=== PATIENT | male | born 1950 | race African-American/Black ===

== ENCOUNTER 2021-02-24 22:05 | Inpatient (IN) | payer MEDICARE, OTHER ==
[~2021-02-24] VITALS: Ht 188 cm; Wt 89.4 kg
[2021-02-24 22:05] VITALS: BP 139/73
[~2021-02-24 22:05] MED LIST: BENA20TA77; isosorbide
[2021-02-24 23:00] VITALS: BP 139/78
[2021-02-24] MEDS ORDERED: IPRATROPIUM/ALBUTEROL 0.5-3(2.5)MG/3ML NEB HHN PRN (23:00)
[2021-02-24] MEDS ORDERED: BISACODYL 5MG TABLET PO PRN (23:00)
[2021-02-25] MEDS: IPRATROPIUM/ALBUTEROL 0.5-3(2.5)MG/3ML NEB HHN SCH ×4 (02:01→20:43)
[2021-02-25 07:51] VITALS: BP 118/68
[2021-02-25] MEDS ORDERED: PNEUMOCOCCAL 23-VAL P-SAC VAC 0.5 ML IM ONE (08:00)
[2021-02-25] MEDS: DOCUSATE SODIUM SUGAR FREE 100MG/10ML UDC PO SCH ×2 (09:00→09:24)
[2021-02-25] MEDS ORDERED: AZITHROMYCIN 250 MG TABLET PO SCH (09:00)
[2021-02-25] MEDS: FINASTERIDE 5MG TABLET PO SCH (09:23)
[2021-02-25] MEDS: BICALUTAMIDE 50 MG TABLET PO SCH (09:24)
[2021-02-25] MEDS ORDERED: INFLUENZA VACCINE 05/PF 0.5 ML VIAL IM ONE (10:00)
[2021-02-25] MEDS: LEVOFLOXACIN 250MG TABLET PO SCH (11:08)
[2021-02-25] MEDS ORDERED: ATOR-2 PO (12:02)
[2021-02-25] MEDS ORDERED: HYDR-4001 PO (12:06)
[2021-02-25] MEDS ORDERED: TERA2CAP4 MT (12:06)
[2021-02-25] MEDS ORDERED: DORZOLAMIDE TIMOLOL (12:06)
[2021-02-25] MEDS ORDERED: FINA5TAB11 PO (12:06)
[2021-02-25] MEDS ORDERED: BICA50TA7 PO (12:06)
[2021-02-25] MEDS ORDERED: LACTULOSE 20G/30ML UDC PO PRN (14:45)
[2021-02-25 20:00] VITALS: BP 133/77
[2021-02-25] MEDS: TERAZOSIN HCL 1MG CAPSULE PO SCH (20:59)
[2021-02-25 21:15] LABS: VITAMIN B12 SERUM 783 pg/mL (211-911)
[2021-02-26] MEDS: IPRATROPIUM/ALBUTEROL 0.5-3(2.5)MG/3ML NEB HHN SCH ×3 (02:31→14:14)
[2021-02-26 08:02] VITALS: BP 125/72
[2021-02-26] MEDS: DOCUSATE SODIUM SUGAR FREE 100MG/10ML UDC PO SCH (09:14)
[2021-02-26] MEDS: BICALUTAMIDE 50 MG TABLET PO SCH (09:14)
[2021-02-26] MEDS: FINASTERIDE 5MG TABLET PO SCH (09:14)
[2021-02-26 20:00] VITALS: BP 133/74
[2021-02-26] MEDS: TERAZOSIN HCL 1MG CAPSULE PO SCH (20:30)
[2021-02-27] VITALS (12 sets, daily range): BP systolic 120–145; BP diastolic 72–82
[2021-02-27] MEDS: IPRATROPIUM/ALBUTEROL 0.5-3(2.5)MG/3ML NEB HHN SCH ×4 (02:16→21:01)
[2021-02-27 06:54] LABS: BASOPHILS % 0.4 % (0.0-2.0); EOSINOPHILS % 3.9 % (0.0-5.0); LYMPHOCYTES % 32.2 % (20.0-50.0); MEAN CORPUSCULAR HEMOGLOBIN 32.2 pg (28.0-32.0); MEAN CORPUSCULAR VOLUME 98.9 fL (80.0-94.0); MEAN PLATELET VOLUME 7.9 fl (7.4-10.4); MONOCYTES % 12.6 % (2.0-8.0); NEUTROPHILS % 50.9 % (40.0-76.0); PLATELET 118 x1000/uL (130-400); RED BLOOD CELL COUNT 2.05 mill/uL (4.7-6.1); RED CELL DISTRIBUTION WIDTH 21.2 % (11.6-14.6)
[2021-02-27 06:59] LABS: HEMATOCRIT. 20.3 % (42.0-52.0); HEMOGLOBIN. 6.6 g/dL (14.0-18.0)
[2021-02-27] MEDS: DOCUSATE SODIUM SUGAR FREE 100MG/10ML UDC PO SCH (08:15)
[2021-02-27] MEDS: FINASTERIDE 5MG TABLET PO SCH (08:15)
[2021-02-27] MEDS: BICALUTAMIDE 50 MG TABLET PO SCH (08:15)
[2021-02-27] MEDS: LEVOFLOXACIN 250MG TABLET PO SCH (11:43)
[2021-02-27] MEDS: TERAZOSIN HCL 1MG CAPSULE PO SCH (20:12)
[2021-02-27 22:08] LABS: HEMATOCRIT 25.8 % (42.0-52.0); HEMOGLOBIN 8.6 g/dL (14.0-18.0)
[2021-02-28] MEDS: IPRATROPIUM/ALBUTEROL 0.5-3(2.5)MG/3ML NEB HHN SCH ×4 (01:12→21:41)
[2021-02-28 02:41] LABS: INR 1.1
[2021-02-28 06:59] LABS: BASOPHILS % 0.4 % (0.0-2.0); EOSINOPHILS % 3.7 % (0.0-5.0); HEMATOCRIT. 23.9 % (42.0-52.0); HEMOGLOBIN. 8.1 g/dL (14.0-18.0); LYMPHOCYTES % 34.2 % (20.0-50.0); MEAN CORPUSCULAR VOLUME 97.6 fL (80.0-94.0); MEAN PLATELET VOLUME 7.9 fl (7.4-10.4); MONOCYTES % 12.9 % (2.0-8.0); NEUTROPHILS % 48.8 % (40.0-76.0); PLATELET 114 x1000/uL (130-400); RED BLOOD CELL COUNT 2.45 mill/uL (4.7-6.1); RED CELL DISTRIBUTION WIDTH 20.3 % (11.6-14.6)
[2021-02-28 08:00] VITALS: BP 127/71
[2021-02-28] MEDS: DOCUSATE SODIUM SUGAR FREE 100MG/10ML UDC PO SCH ×2 (09:00→09:03)
[2021-02-28] MEDS: BICALUTAMIDE 50 MG TABLET PO SCH (09:02)
[2021-02-28] MEDS: FINASTERIDE 5MG TABLET PO SCH (09:02)
[2021-02-28 20:00] VITALS: BP 138/81
[2021-02-28] MEDS: TERAZOSIN HCL 1MG CAPSULE PO SCH (21:58)
[2021-03-01] MEDS: IPRATROPIUM/ALBUTEROL 0.5-3(2.5)MG/3ML NEB HHN SCH ×4 (01:54→21:04)
[2021-03-01] MEDS: ACETAMINOPHEN 325MG TABLET PO PRN ×2 (06:34→13:20)
[2021-03-01 07:47] VITALS: BP 152/83
[2021-03-01] MEDS: FINASTERIDE 5MG TABLET PO SCH (08:26)
[2021-03-01] MEDS: BICALUTAMIDE 50 MG TABLET PO SCH (08:27)
[2021-03-01] MEDS: DOCUSATE SODIUM SUGAR FREE 100MG/10ML UDC PO SCH (08:28)
[2021-03-01] MEDS: LEVOFLOXACIN 250MG TABLET PO SCH (11:00)
[2021-03-01] MEDS: TERAZOSIN HCL 1MG CAPSULE PO SCH (21:31)
[2021-03-02] MEDS: IPRATROPIUM/ALBUTEROL 0.5-3(2.5)MG/3ML NEB HHN SCH ×4 (02:56→22:10)
[2021-03-02] MEDS: ACETAMINOPHEN 325MG TABLET PO PRN (06:25)
[2021-03-02 08:26] VITALS: BP 134/76
[2021-03-02] MEDS: DOCUSATE SODIUM SUGAR FREE 100MG/10ML UDC PO SCH (09:00)
[2021-03-02] MEDS: FINASTERIDE 5MG TABLET PO SCH (09:45)
[2021-03-02] MEDS: BICALUTAMIDE 50 MG TABLET PO SCH (09:53)
[2021-03-02 14:26] LABS: BASOPHILS % 0.3 % (0.0-2.0); EOSINOPHILS % 3.3 % (0.0-5.0); HEMATOCRIT. 30.9 % (42.0-52.0); HEMOGLOBIN. 10.2 g/dL (14.0-18.0); LYMPHOCYTES % 26.2 % (20.0-50.0); MEAN CORPUSCULAR VOLUME 97.5 fL (80.0-94.0); MEAN PLATELET VOLUME 7.8 fl (7.4-10.4); MONOCYTES % 8.8 % (2.0-8.0); NEUTROPHILS % 61.4 % (40.0-76.0); PLATELET 165 x1000/uL (130-400); RED BLOOD CELL COUNT 3.17 mill/uL (4.7-6.1); RED CELL DISTRIBUTION WIDTH 20.2 % (11.6-14.6)
[2021-03-02 14:35] LABS: CHLORIDE 116 mEq/L (98-107)
[2021-03-02 20:00] VITALS: BP 142/81
[2021-03-02] MEDS: TERAZOSIN HCL 1MG CAPSULE PO SCH (21:29)
[2021-03-03] MEDS: ACETAMINOPHEN 325MG TABLET PO PRN (06:31)
[2021-03-03 08:00] VITALS: BP 125/75
[2021-03-03] MEDS: IPRATROPIUM/ALBUTEROL 0.5-3(2.5)MG/3ML NEB HHN SCH ×2 (08:13→14:00)
[2021-03-03] MEDS: DOCUSATE SODIUM SUGAR FREE 100MG/10ML UDC PO SCH (09:00)
[2021-03-03] MEDS: BICALUTAMIDE 50 MG TABLET PO SCH (09:07)
[2021-03-03] MEDS: FINASTERIDE 5MG TABLET PO SCH (09:07)
[2021-03-03] MEDS: LEVOFLOXACIN 250MG TABLET PO SCH (12:57)
[2021-03-03] MEDS: FUROSEMIDE 40MG/4ML VIAL IVP SCH (12:58)
[2021-03-03 20:00] VITALS: BP 144/85
[2021-03-03] MEDS: TERAZOSIN HCL 1MG CAPSULE PO SCH (21:57)
[2021-03-04] MEDS: IPRATROPIUM/ALBUTEROL 0.5-3(2.5)MG/3ML NEB HHN SCH ×3 (07:30→21:32)
[2021-03-04 08:00] VITALS: BP 136/81
[2021-03-04] MEDS: FUROSEMIDE 40MG/4ML VIAL IVP SCH (08:16)
[2021-03-04] MEDS: BICALUTAMIDE 50 MG TABLET PO SCH (08:16)
[2021-03-04] MEDS: FINASTERIDE 5MG TABLET PO SCH (08:16)
[2021-03-04] MEDS: ACETAMINOPHEN 325MG TABLET PO PRN (08:17)
[2021-03-04] MEDS: DOCUSATE SODIUM SUGAR FREE 100MG/10ML UDC PO SCH (08:17)
[2021-03-04 20:00] VITALS: BP 130/78
[2021-03-04] MEDS: TERAZOSIN HCL 1MG CAPSULE PO SCH (20:27)
[2021-03-05] MEDS: ACETAMINOPHEN 325MG TABLET PO PRN (05:56)
[2021-03-05] MEDS: FUROSEMIDE 40MG/4ML VIAL IVP SCH ×2 (08:17→17:00)
[2021-03-05] MEDS: BICALUTAMIDE 50 MG TABLET PO SCH (08:17)
[2021-03-05] MEDS: DOCUSATE SODIUM SUGAR FREE 100MG/10ML UDC PO SCH (08:17)
[2021-03-05] MEDS: FINASTERIDE 5MG TABLET PO SCH (08:17)
[2021-03-05 08:24] VITALS: BP 148/89
[2021-03-05] MEDS: POTASSIUM CHLORIDE 20MEQ TABLET SR PO SCH (10:52)
[2021-03-05 12:13] LABS: BASOPHILS % 0.4 % (0.0-2.0); EOSINOPHILS % 2.9 % (0.0-5.0); HEMATOCRIT. 29.3 % (42.0-52.0); HEMOGLOBIN. 9.9 g/dL (14.0-18.0); LYMPHOCYTES % 25.7 % (20.0-50.0); MEAN CORPUSCULAR HEMOGLOBIN 33.2 pg (28.0-32.0); MEAN CORPUSCULAR VOLUME 98.6 fL (80.0-94.0); MEAN PLATELET VOLUME 7.4 fl (7.4-10.4); MONOCYTES % 9.5 % (2.0-8.0); NEUTROPHILS % 61.5 % (40.0-76.0); PLATELET 142 x1000/uL (130-400); RED BLOOD CELL COUNT 2.97 mill/uL (4.7-6.1); RED CELL DISTRIBUTION WIDTH 20.2 % (11.6-14.6)
[2021-03-05 20:00] VITALS: BP 118/85
[2021-03-05] MEDS: TERAZOSIN HCL 1MG CAPSULE PO SCH (20:41)
[2021-03-05] MEDS: IPRATROPIUM/ALBUTEROL 0.5-3(2.5)MG/3ML NEB HHN SCH (21:42)
[2021-03-06] MEDS: ACETAMINOPHEN 325MG TABLET PO PRN ×2 (04:04→17:12)
[2021-03-06] MEDS: FUROSEMIDE 40MG/4ML VIAL IVP SCH ×2 (06:15→17:09)
[2021-03-06 08:00] VITALS: BP 152/86
[2021-03-06] MEDS: IPRATROPIUM/ALBUTEROL 0.5-3(2.5)MG/3ML NEB HHN SCH ×2 (09:00→20:21)
[2021-03-06] MEDS: DOCUSATE SODIUM SUGAR FREE 100MG/10ML UDC PO SCH (09:00)
[2021-03-06] MEDS: FINASTERIDE 5MG TABLET PO SCH (09:29)
[2021-03-06] MEDS: BICALUTAMIDE 50 MG TABLET PO SCH (09:29)
[2021-03-06] MEDS: POTASSIUM CHLORIDE 20MEQ TABLET SR PO SCH (09:29)
[2021-03-06 20:00] VITALS: BP 142/83
[2021-03-06] MEDS: TERAZOSIN HCL 1MG CAPSULE PO SCH (20:39)
[2021-03-07] MEDS: FUROSEMIDE 40MG/4ML VIAL IVP SCH ×2 (06:18→16:43)
[2021-03-07] MEDS: IPRATROPIUM/ALBUTEROL 0.5-3(2.5)MG/3ML NEB HHN SCH ×2 (07:39→21:44)
[2021-03-07 08:00] VITALS: BP 132/79
[2021-03-07] MEDS: DOCUSATE SODIUM SUGAR FREE 100MG/10ML UDC PO SCH (09:00)
[2021-03-07] MEDS: FINASTERIDE 5MG TABLET PO SCH (09:21)
[2021-03-07] MEDS: POTASSIUM CHLORIDE 20MEQ TABLET SR PO SCH (09:21)
[2021-03-07] MEDS: BICALUTAMIDE 50 MG TABLET PO SCH (09:23)
[2021-03-07 20:00] VITALS: BP 144/86
[2021-03-07] MEDS: TERAZOSIN HCL 1MG CAPSULE PO SCH (20:57)
[2021-03-08] MEDS: ACETAMINOPHEN 325MG TABLET PO PRN (06:17)
[2021-03-08] MEDS: FUROSEMIDE 40MG/4ML VIAL IVP SCH ×2 (06:17→17:32)
[2021-03-08] MEDS: IPRATROPIUM/ALBUTEROL 0.5-3(2.5)MG/3ML NEB HHN SCH ×2 (07:53→21:32)
[2021-03-08 08:00] VITALS: BP 138/90
[2021-03-08] MEDS: BICALUTAMIDE 50 MG TABLET PO SCH ×2 (09:00→09:11)
[2021-03-08] MEDS: FINASTERIDE 5MG TABLET PO SCH (09:11)
[2021-03-08] MEDS: POTASSIUM CHLORIDE 20MEQ TABLET SR PO SCH (09:11)
[2021-03-08] MEDS: DOCUSATE SODIUM SUGAR FREE 100MG/10ML UDC PO SCH (09:14)
[2021-03-08 20:00] VITALS: BP 130/84
[2021-03-08] MEDS: TERAZOSIN HCL 1MG CAPSULE PO SCH (20:36)
[2021-03-09] MEDS: FUROSEMIDE 40MG/4ML VIAL IVP SCH ×2 (06:40→16:36)
[2021-03-09] MEDS: IPRATROPIUM/ALBUTEROL 0.5-3(2.5)MG/3ML NEB HHN SCH ×2 (07:24→16:20)
[2021-03-09 08:00] VITALS: BP 147/89
[2021-03-09] MEDS: FINASTERIDE 5MG TABLET PO SCH (09:00)
[2021-03-09] MEDS: POTASSIUM CHLORIDE 20MEQ TABLET SR PO SCH (09:00)
[2021-03-09] MEDS: DOCUSATE SODIUM SUGAR FREE 100MG/10ML UDC PO SCH (09:50)
[2021-03-09] MEDS: ACETAMINOPHEN 325MG TABLET PO PRN (09:53)
== END 2021-03-09 16:50 | disposition home health service (06) | DRG 947 ==
PROVIDERS: ADMIT Psychiatry & Neurology Neurology; ATTEND Internal Medicine
DX: R53.81 Other malaise (principal); A41.9 Sepsis, unspecified organism; J96.00 Acute respiratory failure, unspecified whether with hypoxia or hypercapnia; J18.9 Pneumonia, unspecified organism; I50.31 Acute diastolic (congestive) heart failure; N13.6 Pyonephrosis; C79.51 Secondary malignant neoplasm of bone; I69.354 Hemiplegia and hemiparesis following cerebral infarction affecting left non-dominant side; I13.0 Hypertensive heart and chronic kidney disease with heart failure and stage 1 through stage 4 chronic kidney disease, or unspecified chronic kidney disease; N17.9 Acute kidney failure, unspecified; K56.41 Fecal impaction; R62.7 Adult failure to thrive; I12.9 Hypertensive chronic kidney disease with stage 1 through stage 4 chronic kidney disease, or unspecified chronic kidney disease; N18.9 Chronic kidney disease, unspecified; D69.6 Thrombocytopenia, unspecified; D64.9 Anemia, unspecified; I27.21 Secondary pulmonary arterial hypertension; N25.0 Renal osteodystrophy; N28.1 Cyst of kidney, acquired; Z85.46 Personal history of malignant neoplasm of prostate; Z93.6 Other artificial openings of urinary tract status; Z68.25 Body mass index [BMI] 25.0-25.9, adult
CPT/HCPCS: 36415; 71045; 80048; 82270; 82607; 83880; 84145; 84443; 85014; 85018; 85025; 85049; 85384; 86850; 86900; 86920; 93306; 93970; 94618; 94640; 97110; 97112; 97116; 97162; 97166; 97530; 97535; J1940; J7040; P9016; P9021; A5200

== ENCOUNTER 2021-03-24 13:00 | Inpatient (IN) | payer MEDICARE, OTHER ==
[~2021-03-24] VITALS: Ht 172.7 cm; Wt 69.4 kg
[~2021-03-24 13:00] MED LIST changes: +ATOR-2 PO; -BENA20TA77; +BICA50TA7 PO; +DORZOLAMIDE TIMOLOL; +FINA5TAB11 PO; +HYDR-4001 PO; +TERA2CAP4 MT
[2021-03-24] MEDS ORDERED: PIPERACILLIN/TAZ 3.375G PREMIX 50 ML IV ONE (13:30)
[2021-03-24] MEDS ORDERED: ASPIRIN 81MG EC TABLET PO ONE (13:30)
[2021-03-24] MEDS ORDERED: SODIUM CHLORIDE 0.9% 1000ML BAG (SEPSIS BOLUS) IV ONE (13:30)
[2021-03-24] MEDS ORDERED: VANCOMYCIN 1 G PREMIX 200 ML IV ONE (13:30)
[2021-03-24] MEDS ORDERED: DEXAMETHASONE 10 MG/ML VIAL IV ONE (13:45)
[2021-03-24 13:57] LABS: BG BASE EXCESS -5.9 mmol/L (-2.0-2.0); BG CARBOXYHEMOGLOBIN 0.3 % (0.5-1.5); BG FRACTION INSPIRED OXYGEN 28; BG HCO3 ACT 16.7 mmol/L (22.0-26.0); BG METHEMOGLOBIN 0.4 % (0.0-1.5); BG OXYHEMOGLOBIN 96.3 % (94.0-97.0); BG PCO2 24.3 mmHg (35.0-45.0); BG PH 7.456 (7.350-7.450); BG PO2 92.1 mmHg (75.0-100.0); BG SAMPLE SITE RIGHT BRACHIAL; BG TOTAL HEMOGLOBIN 9.9 g/dL (12.0-18.0); BG VENT MODE NASAL CANNULA
[2021-03-24 14:29] LABS: HEMOGLOBIN. 9.6 g/dL (14.0-18.0); MEAN CORPUSCULAR HEMOGLOBIN 33.5 pg (28.0-32.0); MEAN CORPUSCULAR VOLUME 100.7 fL (80.0-94.0); PLATELET 115 x1000/uL (130-400); RED BLOOD CELL COUNT 2.88 mill/uL (4.7-6.1); RED CELL DISTRIBUTION WIDTH 21.4 % (11.6-14.6)
[2021-03-24 14:35] LABS: CHLORIDE 116 mEq/L (98-107)
[2021-03-24 14:39] LABS: INR 1.1; PARTIAL THROMBOPLASTIN TIME 24.8 sec (23.4-31.0); PROTHROMBIN TIME 12.2 sec (9.6-11.0)
[2021-03-24 14:45] LABS: CLARITY URINE TURBID (CLEAR); COLOR URINE ORANGE (YELLOW); KETONES URINE NEGATIVE (NEGATIVE); LEUKOCYTE ESTERASE URINE 3+ (NEGATIVE); NITRITE URINE POSITIVE (NEGATIVE); OCCULT BLOOD URINE 3+ (NEGATIVE); PROTEIN URINE 3+ (NEGATIVE); SPECIFIC GRAVITY URINE 1.016 (1.005-1.030)
[2021-03-24 15:48] LABS: PLATELET ESTIMATE DECREASED
[2021-03-24] MEDS ORDERED: NITROGLYCERIN 0.4MG TABLET SL SL PRN (18:00)
[2021-03-24] MEDS ORDERED: TRAMADOL 50MG TABLET PO PRN (18:00)
[2021-03-24] MEDS ORDERED: MAGNESIUM/ALUMINUM HYDROXIDE/SIMETHICONE 30ML UDC PO PRN (18:00)
[2021-03-24] MEDS ORDERED: IPRATROPIUM/ALBUTEROL 0.5-3(2.5)MG/3ML NEB NEB PRN (18:00)
[2021-03-24] MEDS ORDERED: ACETAMINOPHEN 325MG TABLET PO PRN ×2 (18:00)
[2021-03-24] MEDS ORDERED: GUAIFENESIN 200MG/10ML SUGAR FREE UDC PO PRN (18:00)
[2021-03-24] MEDS ORDERED: ENOXAPARIN 40MG/0.4ML SYR SUBCUT SCH (18:00)
[2021-03-24] MEDS ORDERED: ONDANSETRON HCL 4MG/2ML INJ IV PRN (18:00)
[2021-03-24] MEDS ORDERED: DOCUSATE SODIUM 100MG CAPSULE PO PRN (18:00)
[2021-03-24] MEDS ORDERED: NA PHOS,M-B/NA PHOS,DI-BA ENEMA 118ML PR PRN (18:00)
[2021-03-24] MEDS ORDERED: CLONIDINE 0.1MG TABLET PO PRN (18:00)
[2021-03-24] MEDS ORDERED: VANCOMYCIN 500 MG PREMIX 100 ML IV NR ×2 (18:15→23:45)
[2021-03-24 18:58] LABS: FOLIC ACID (FOLATE) SERUM 8.9 ng/mL (>5.38)
[2021-03-24] MEDS: ENOXAPARIN 30MG/0.3ML SYR SUBCUT SCH (20:12)
[2021-03-24] MEDS ORDERED: ZOLPIDEM TARTRATE 5MG TABLET PO PRN (21:00)
[2021-03-24] MEDS: ATORVASTATIN CALCIUM 40MG TABLET PO SCH (21:59)
[2021-03-24] MEDS: GUAIFENESIN/DM 600MG/30MG ER TAB 12HR PO SCH (21:59)
[2021-03-24] MEDS: ASCORBIC ACID 500 MG TABLET PO SCH (21:59)
[2021-03-24] MEDS ORDERED: PIPERACILLIN/TAZ 3.375G PREMIX 50 ML IV SCH (22:00)
[2021-03-24 23:10] LABS: CREATINE KINASE 109 IU/L (39-308)
[2021-03-24 23:11] LABS: CREATINE KINASE MB FRACTION < 1.0 ng/mL (0.5-3.6)
[2021-03-25] VITALS: BP 109/69
[2021-03-25 00:15] VITALS: BP 109/69
[2021-03-25 04:00] VITALS: BP 110/68
[2021-03-25] MEDS: PIPERACILLIN/TAZOBACTAM 2.25 G in DEXTROSE 5% WATER 50 ML IV SCH ×3 (06:49→23:35)
[2021-03-25 07:12] LABS: CHLORIDE 115 mEq/L (98-107); HEMATOCRIT. 24.5 % (42.0-52.0); HEMOGLOBIN. 8.1 g/dL (14.0-18.0); MEAN CORPUSCULAR VOLUME 99.1 fL (80.0-94.0); MEAN PLATELET VOLUME 8.1 fl (7.4-10.4); PLATELET 89 x1000/uL (130-400); RED BLOOD CELL COUNT 2.47 mill/uL (4.7-6.1); RED CELL DISTRIBUTION WIDTH 21.4 % (11.6-14.6)
[2021-03-25 07:21] LABS: CREATINE KINASE 132 IU/L (39-308)
[2021-03-25 07:27] LABS: CREATINE KINASE MB FRACTION < 1.0 ng/mL (0.5-3.6)
[2021-03-25 08:32] VITALS: BP 113/70
[2021-03-25] MEDS: CHOLECALCIFEROL (D3) 1000 UNIT TABLET PO SCH (08:39)
[2021-03-25] MEDS: ASCORBIC ACID 500 MG TABLET PO SCH ×2 (08:39→20:06)
[2021-03-25] MEDS: ZINC SULFATE 220 MG ( 50 ) CAPSULE PO SCH (08:39)
[2021-03-25] MEDS: GUAIFENESIN/DM 600MG/30MG ER TAB 12HR PO SCH ×2 (08:39→20:06)
[2021-03-25] MEDS: ASPIRIN 325MG EC TABLET PO SCH (08:39)
[2021-03-25 12:13] VITALS: BP 106/61
[2021-03-25 13:52] LABS: PLATELET ESTIMATE DECREASED
[2021-03-25] MEDS: ENOXAPARIN 30MG/0.3ML SYR SUBCUT SCH (18:00)
[2021-03-25 20:00] VITALS: BP 123/86
[2021-03-25] MEDS: ATORVASTATIN CALCIUM 40MG TABLET PO SCH (20:06)
[2021-03-26] VITALS (7 sets, daily range): BP systolic 121–127; BP diastolic 80–86
[2021-03-26] MEDS: PIPERACILLIN/TAZOBACTAM 2.25 G in DEXTROSE 5% WATER 50 ML IV SCH ×3 (05:05→21:23)
[2021-03-26 06:22] LABS: HEMATOCRIT. 23.1 % (42.0-52.0); HEMOGLOBIN. 7.7 g/dL (14.0-18.0); MEAN CORPUSCULAR HEMOGLOBIN 32.8 pg (28.0-32.0); MEAN CORPUSCULAR VOLUME 98.1 fL (80.0-94.0); PLATELET 89 x1000/uL (130-400); RED BLOOD CELL COUNT 2.35 mill/uL (4.7-6.1); RED CELL DISTRIBUTION WIDTH 21.3 % (11.6-14.6)
[2021-03-26 06:31] LABS: CHLORIDE 115 mEq/L (98-107)
[2021-03-26 06:47] LABS: CREATINE KINASE 89 IU/L (39-308)
[2021-03-26] MEDS: ASPIRIN 325MG EC TABLET PO SCH (08:34)
[2021-03-26] MEDS: CHOLECALCIFEROL (D3) 1000 UNIT TABLET PO SCH (08:34)
[2021-03-26] MEDS: ASCORBIC ACID 500 MG TABLET PO SCH ×2 (08:34→21:22)
[2021-03-26] MEDS: ZINC SULFATE 220 MG ( 50 ) CAPSULE PO SCH (08:34)
[2021-03-26] MEDS: GUAIFENESIN/DM 600MG/30MG ER TAB 12HR PO SCH ×2 (08:34→21:22)
[2021-03-26] MEDS ORDERED: DIPHENOXYLATE/ATROPINE 2.5/0.025MG TABLET PO PRN (14:00)
[2021-03-26 14:48] LABS: PLATELET ESTIMATE DECREASED
[2021-03-26] MEDS: ENOXAPARIN 30MG/0.3ML SYR SUBCUT SCH (18:00)
[2021-03-26] MEDS: ATORVASTATIN CALCIUM 40MG TABLET PO SCH (21:22)
[2021-03-27] VITALS: BP 121/75
[2021-03-27 04:00] VITALS: BP 136/87
[2021-03-27] MEDS: PIPERACILLIN/TAZOBACTAM 2.25 G in DEXTROSE 5% WATER 50 ML IV SCH ×3 (05:57→20:49)
[2021-03-27 07:16] LABS: HEMATOCRIT. 24.7 % (42.0-52.0); HEMOGLOBIN. 8.2 g/dL (14.0-18.0); MEAN CORPUSCULAR HEMOGLOBIN 32.7 pg (28.0-32.0); MEAN CORPUSCULAR VOLUME 98.8 fL (80.0-94.0); MEAN PLATELET VOLUME 9.3 fl (7.4-10.4); PLATELET 84 x1000/uL (130-400); RED CELL DISTRIBUTION WIDTH 21.3 % (11.6-14.6)
[2021-03-27 08:00] VITALS: BP 139/84
[2021-03-27 08:10] LABS: PHOSPHORUS 3.1 mg/dL (2.5-4.9)
[2021-03-27] MEDS: ZINC SULFATE 220 MG ( 50 ) CAPSULE PO SCH (09:08)
[2021-03-27] MEDS: ASPIRIN 325MG EC TABLET PO SCH (09:08)
[2021-03-27] MEDS: CHOLECALCIFEROL (D3) 1000 UNIT TABLET PO SCH (09:08)
[2021-03-27] MEDS: ASCORBIC ACID 500 MG TABLET PO SCH ×2 (09:08→20:48)
[2021-03-27] MEDS: GUAIFENESIN/DM 600MG/30MG ER TAB 12HR PO SCH ×2 (09:08→20:48)
[2021-03-27 12:00] VITALS: BP 137/83
[2021-03-27] MEDS ORDERED: VANCOMYCIN 1 G PREMIX 200 ML IV SCH (12:00)
[2021-03-27 12:36] LABS: PLATELET ESTIMATE DECREASED
[2021-03-27 16:00] VITALS: BP 132/85
[2021-03-27] MEDS: ENOXAPARIN 30MG/0.3ML SYR SUBCUT SCH (17:15)
[2021-03-27 20:00] VITALS: BP 140/87
[2021-03-27] MEDS: ATORVASTATIN CALCIUM 40MG TABLET PO SCH (20:47)
[2021-03-28] VITALS: BP 145/87
[2021-03-28 04:00] VITALS: BP 136/84
[2021-03-28] MEDS: PIPERACILLIN/TAZOBACTAM 2.25 G in DEXTROSE 5% WATER 50 ML IV SCH ×2 (06:13→13:02)
[2021-03-28 06:14] LABS: HEMOGLOBIN. 8.4 g/dL (14.0-18.0); MEAN CORPUSCULAR HEMOGLOBIN 32.7 pg (28.0-32.0); MEAN CORPUSCULAR VOLUME 97.3 fL (80.0-94.0); MEAN PLATELET VOLUME 9.5 fl (7.4-10.4); PHOSPHORUS 2.8 mg/dL (2.5-4.9); PLATELET 88 x1000/uL (130-400); RED BLOOD CELL COUNT 2.56 mill/uL (4.7-6.1); RED CELL DISTRIBUTION WIDTH 21.1 % (11.6-14.6)
[2021-03-28 08:00] VITALS: BP_SYST 164; BP_DIAS 91; BP_DIAS 93
[2021-03-28] MEDS: ASPIRIN 325MG EC TABLET PO SCH (08:40)
[2021-03-28] MEDS: GUAIFENESIN/DM 600MG/30MG ER TAB 12HR PO SCH ×2 (08:40→21:59)
[2021-03-28] MEDS: ZINC SULFATE 220 MG ( 50 ) CAPSULE PO SCH (08:40)
[2021-03-28] MEDS: ASCORBIC ACID 500 MG TABLET PO SCH ×2 (08:40→21:59)
[2021-03-28] MEDS: CHOLECALCIFEROL (D3) 1000 UNIT TABLET PO SCH (08:40)
[2021-03-28 11:06] LABS: NUCLEATED RED BLOOD CELLS 1 /100 WBC
[2021-03-28 11:08] LABS: PLATELET ESTIMATE DECREASED
[2021-03-28 12:00] VITALS: BP 136/91
[2021-03-28] MEDS ORDERED: VANCOMYCIN 1 G PREMIX 200 ML IV SCH (12:00)
[2021-03-28] MEDS: DIPHENOXYLATE/ATROPINE 2.5/0.025MG TABLET PO PRN ×2 (13:05→22:01)
[2021-03-28] MEDS: CEFEPIME 1,000 MG in DEXTROSE 5% WATER 50 ML IV SCH (15:15)
[2021-03-28] MEDS: AMPICILLIN 2,000 MG in SODIUM CHLORIDE 0.9% 100 ML IV SCH ×2 (15:15→21:59)
[2021-03-28 16:00] VITALS: BP 152/94
[2021-03-28] MEDS: ENOXAPARIN 30MG/0.3ML SYR SUBCUT SCH (17:09)
[2021-03-28 20:00] VITALS: BP 146/82
[2021-03-28] MEDS: ATORVASTATIN CALCIUM 40MG TABLET PO SCH (21:59)
[2021-03-29] VITALS (7 sets, daily range): BP systolic 117–154; BP diastolic 70–90
[2021-03-29] MEDS: AMPICILLIN 2,000 MG in SODIUM CHLORIDE 0.9% 100 ML IV SCH ×3 (06:22→21:58)
[2021-03-29 07:04] LABS: CHLORIDE 117 mEq/L (98-107)
[2021-03-29 07:15] LABS: PHOSPHORUS 2.7 mg/dL (2.5-4.9)
[2021-03-29 07:57] LABS: HEMOGLOBIN. 8.6 g/dL (14.0-18.0); MEAN CORPUSCULAR HEMOGLOBIN 32.6 pg (28.0-32.0); MEAN CORPUSCULAR VOLUME 98.2 fL (80.0-94.0); MEAN PLATELET VOLUME 9.4 fl (7.4-10.4); PLATELET 93 x1000/uL (130-400); RED BLOOD CELL COUNT 2.65 mill/uL (4.7-6.1); RED CELL DISTRIBUTION WIDTH 20.5 % (11.6-14.6)
[2021-03-29] MEDS: ZINC SULFATE 220 MG ( 50 ) CAPSULE PO SCH (09:15)
[2021-03-29] MEDS: ASPIRIN 325MG EC TABLET PO SCH (09:16)
[2021-03-29] MEDS: CHOLECALCIFEROL (D3) 1000 UNIT TABLET PO SCH (09:16)
[2021-03-29] MEDS: DIPHENOXYLATE/ATROPINE 2.5/0.025MG TABLET PO PRN (09:16)
[2021-03-29] MEDS: GUAIFENESIN/DM 600MG/30MG ER TAB 12HR PO SCH ×2 (09:16→21:58)
[2021-03-29] MEDS: ASCORBIC ACID 500 MG TABLET PO SCH ×2 (09:17→21:58)
[2021-03-29 10:22] LABS: NUCLEATED RED BLOOD CELLS 2 /100 WBC; PLATELET ESTIMATE SLIGHTLY DECREASED
[2021-03-29] MEDS: CEFEPIME 1,000 MG in DEXTROSE 5% WATER 50 ML IV SCH (13:04)
[2021-03-29] MEDS: ENOXAPARIN 30MG/0.3ML SYR SUBCUT SCH (17:52)
[2021-03-29] MEDS: ATORVASTATIN CALCIUM 40MG TABLET PO SCH (21:58)
[2021-03-29] MEDS: TERAZOSIN HCL 1MG CAPSULE PO SCH (21:58)
[2021-03-30] VITALS: BP 128/66
[2021-03-30 04:00] VITALS: BP 131/82
[2021-03-30] MEDS: AMPICILLIN 2,000 MG in SODIUM CHLORIDE 0.9% 100 ML IV SCH ×3 (06:13→20:17)
[2021-03-30 06:25] LABS: HEMATOCRIT. 25.4 % (42.0-52.0); HEMOGLOBIN. 8.6 g/dL (14.0-18.0); MEAN CORPUSCULAR VOLUME 97.6 fL (80.0-94.0); MEAN PLATELET VOLUME 8.8 fl (7.4-10.4); PLATELET 98 x1000/uL (130-400); RED CELL DISTRIBUTION WIDTH 20.9 % (11.6-14.6)
[2021-03-30 06:42] LABS: PHOSPHORUS 2.9 mg/dL (2.5-4.9)
[2021-03-30 08:00] VITALS: BP 145/81
[2021-03-30] MEDS: ASPIRIN 325MG EC TABLET PO SCH (08:07)
[2021-03-30] MEDS: GUAIFENESIN/DM 600MG/30MG ER TAB 12HR PO SCH ×2 (08:07→20:17)
[2021-03-30] MEDS: CHOLECALCIFEROL (D3) 1000 UNIT TABLET PO SCH (08:07)
[2021-03-30] MEDS: ASCORBIC ACID 500 MG TABLET PO SCH ×2 (08:07→20:17)
[2021-03-30] MEDS: ZINC SULFATE 220 MG ( 50 ) CAPSULE PO SCH (08:07)
[2021-03-30 12:00] VITALS: BP 147/92
[2021-03-30] MEDS: CEFEPIME 1,000 MG in DEXTROSE 5% WATER 50 ML IV SCH (12:32)
[2021-03-30 15:30] LABS: NUCLEATED RED BLOOD CELLS 1 /100 WBC
[2021-03-30 15:34] LABS: PLATELET ESTIMATE SLIGHTLY DECREASED
[2021-03-30 16:00] VITALS: BP 152/87
[2021-03-30] MEDS: ENOXAPARIN 30MG/0.3ML SYR SUBCUT SCH (17:46)
[2021-03-30 20:14] VITALS: BP 162/91
[2021-03-30] MEDS: ATORVASTATIN CALCIUM 40MG TABLET PO SCH (20:17)
[2021-03-30] MEDS: TERAZOSIN HCL 1MG CAPSULE PO SCH (20:17)
[2021-03-31 00:43] VITALS: BP 145/83
[2021-03-31 04:38] VITALS: BP 140/80
[2021-03-31] MEDS: AMPICILLIN 2,000 MG in SODIUM CHLORIDE 0.9% 100 ML IV SCH ×2 (06:06→13:56)
[2021-03-31] MEDS: GUAIFENESIN/DM 600MG/30MG ER TAB 12HR PO SCH (09:20)
[2021-03-31] MEDS: ASPIRIN 325MG EC TABLET PO SCH (09:20)
[2021-03-31] MEDS: CHOLECALCIFEROL (D3) 1000 UNIT TABLET PO SCH (09:20)
[2021-03-31] MEDS: ASCORBIC ACID 500 MG TABLET PO SCH (09:20)
[2021-03-31] MEDS: ZINC SULFATE 220 MG ( 50 ) CAPSULE PO SCH (09:20)
[2021-03-31] MEDS ORDERED: AMLODIPINE 5MG TABLET PO SCH (10:45)
[2021-03-31] MEDS: CEFEPIME 1,000 MG in DEXTROSE 5% WATER 50 ML IV SCH (13:56)
== END 2021-03-31 17:23 | disposition left against medical advice (07) | DRG 871 ==
LOC: ER 13:00 → 8WST 17:26 → SUPCPDRO 17:50 → ENRESERV 22:34
PROVIDERS: ADMIT Internal Medicine; ATTEND Internal Medicine
DX: A41.81 Sepsis due to Enterococcus (principal); E43 Unspecified severe protein-calorie malnutrition; J18.9 Pneumonia, unspecified organism; J96.01 Acute respiratory failure with hypoxia; C79.51 Secondary malignant neoplasm of bone; E87.0 Hyperosmolality and hypernatremia; E87.2 Acidosis; I13.0 Hypertensive heart and chronic kidney disease with heart failure and stage 1 through stage 4 chronic kidney disease, or unspecified chronic kidney disease; I50.32 Chronic diastolic (congestive) heart failure; I69.354 Hemiplegia and hemiparesis following cerebral infarction affecting left non-dominant side; J91.0 Malignant pleural effusion; M84.40XA Pathological fracture, unspecified site, initial encounter for fracture; N17.9 Acute kidney failure, unspecified; N13.8 Other obstructive and reflux uropathy; C61 Malignant neoplasm of prostate; D63.8 Anemia in other chronic diseases classified elsewhere; R33.9 Retention of urine, unspecified; D69.6 Thrombocytopenia, unspecified; Z20.822 Contact with and (suspected) exposure to COVID-19; Z53.29 Procedure and treatment not carried out because of patient's decision for other reasons; E78.00 Pure hypercholesterolemia, unspecified; E78.5 Hyperlipidemia, unspecified; E83.51 Hypocalcemia; N18.30 Chronic kidney disease, stage 3 unspecified; K56.41 Fecal impaction; Z82.49 Family history of ischemic heart disease and other diseases of the circulatory system; Z68.23 Body mass index [BMI] 23.0-23.9, adult
CPT/HCPCS: 36415; 36600; 71045; 74176; 76770; 80048; 80053; 80061; 80202; 81003; 82375; 82550; 82553; 82607; 82746; 82805; 83036; 83540; 83550; 83605; 83735; 83880; 84100; 84145; 84484; 85025; 87077; 87186; 87493; 93005; 93306; 93970; 97162; 97166; 97530; 99291; C9803; J0290; J0692; J1100; J1650; J2543; J3370; J7030; J7040; J7050; J7060; U0003; U0005; A4315

== ENCOUNTER 2021-04-11 04:07 | Inpatient (IN) | payer MEDICARE, OTHER ==
[~2021-04-11] VITALS: Ht 182.9 cm; Wt 76.2 kg
[2021-04-11] MEDS ORDERED: ACETAMINOPHEN 325MG TABLET PO STA (04:41)
[2021-04-11] MEDS ORDERED: ONDANSETRON HCL 4MG/2ML INJ IV STA (04:41)
[2021-04-11] MEDS ORDERED: SODIUM CHLORIDE 0.9% 1,000 ML IV ONE (04:45)
[2021-04-11] MEDS ORDERED: PIPERACILLIN/TAZ 3.375G PREMIX 50 ML IV ONE (04:45)
[2021-04-11] MEDS ORDERED: VANCOMYCIN 1 G PREMIX 200 ML IV ONE (04:45)
[2021-04-11 04:57] LABS: HEMATOCRIT. 26.5 % (42.0-52.0); HEMOGLOBIN. 8.9 g/dL (14.0-18.0); MEAN CORPUSCULAR HEMOGLOBIN 33.1 pg (28.0-32.0); MEAN CORPUSCULAR VOLUME 98.5 fL (80.0-94.0); MEAN PLATELET VOLUME 8.2 fl (7.4-10.4); PLATELET 88 x1000/uL (130-400); RED BLOOD CELL COUNT 2.69 mill/uL (4.7-6.1); RED CELL DISTRIBUTION WIDTH 20.9 % (11.6-14.6)
[2021-04-11 05:03] LABS: CHLORIDE 126 mEq/L (98-107)
[2021-04-11 05:07] LABS: INR 1.2; PROTHROMBIN TIME 12.4 sec (9.6-11.0)
[2021-04-11 05:57] LABS: BG CARBOXYHEMOGLOBIN 0.3 % (0.5-1.5); BG DEOXYHEMOGLOBIN 4.3 % (0.0-5.0); BG FRACTION INSPIRED OXYGEN 21; BG HCO3 ACT 14.5 mmol/L (22.0-26.0); BG METHEMOGLOBIN 1.1 % (0.0-1.5); BG OXYGEN SATURATION 95.6 % (92.0-98.5); BG OXYHEMOGLOBIN 94.3 % (94.0-97.0); BG PCO2 20.6 mmHg (35.0-45.0); BG PH 7.464 (7.350-7.450); BG PO2 84.1 mmHg (75.0-100.0); BG SAMPLE SITE RIGHT RADIAL; BG TOTAL HEMOGLOBIN 8.5 g/dL (12.0-18.0); BG VENT MODE ROOM AIR
[2021-04-11 06:10] LABS: CLARITY URINE TURBID (CLEAR); COLOR URINE YELLOW (YELLOW); KETONES URINE NEGATIVE (NEGATIVE); LEUKOCYTE ESTERASE URINE 3+ (NEGATIVE); NITRITE URINE NEGATIVE (NEGATIVE); OCCULT BLOOD URINE 3+ (NEGATIVE); PROTEIN URINE 4+ (NEGATIVE); SPECIFIC GRAVITY URINE 1.021 (1.005-1.030); UROBILINOGEN URINE 0.2 E.U./dL (0.2-1.0)
[2021-04-11 06:47] LABS: PLATELET ESTIMATE DECREASED
[2021-04-11] MEDS ORDERED: MAGNESIUM/ALUMINUM HYDROXIDE/SIMETHICONE 30ML UDC PO PRN (08:15)
[2021-04-11] MEDS ORDERED: HYDROCODONE/ACETAMINOPHEN 5/325MG TABLET PO PRN (08:15)
[2021-04-11] MEDS ORDERED: DIPHENHYDRAMINE 50MG/ML VIAL IV PRN (08:15)
[2021-04-11] MEDS ORDERED: IPRATROPIUM/ALBUTEROL 0.5-3(2.5)MG/3ML NEB HHN PRN (08:15)
[2021-04-11] MEDS ORDERED: ENOXAPARIN 40MG/0.4ML SYR SUBCUT SCH (08:15)
[2021-04-11] MEDS ORDERED: GUAIFENESIN 200MG/10ML SUGAR FREE UDC PO PRN (08:15)
[2021-04-11] MEDS ORDERED: CLONIDINE 0.1MG TABLET PO PRN (08:15)
[2021-04-11] MEDS ORDERED: ONDANSETRON HCL 4MG/2ML INJ IV PRN (08:15)
[2021-04-11] MEDS ORDERED: LORAZEPAM 2MG/ML CPJ IV PRN (08:15)
[2021-04-11] MEDS ORDERED: DOCUSATE SODIUM 100MG CAPSULE PO PRN (08:15)
[2021-04-11] MEDS ORDERED: MORPHINE SULFATE 2 MG/ML CPJ (NOT FOR IM USE) IV PRN (08:15)
[2021-04-11] MEDS ORDERED: HYDRALAZINE 20MG/ML VIAL IV PRN (08:15)
[2021-04-11] MEDS ORDERED: ACETAMINOPHEN 325MG TABLET PO PRN (08:15)
[2021-04-11] MEDS: SODIUM CHLORIDE 0.45% 1,000 ML IV SCH ×2 (08:42→21:46)
[2021-04-11] MEDS ORDERED: ENOXAPARIN 30MG/0.3ML SYR SUBCUT SCH (09:00)
[2021-04-11] MEDS ORDERED: VANCOMYCIN 1500MG in DEXTROSE 5% WATER 250ML IV NR (09:00)
[2021-04-11] MEDS ORDERED: VANCOMYCIN 500 MG PREMIX 100 ML IV NR (10:15)
[2021-04-11] MEDS ORDERED: PIPERACILLIN/TAZ 3.375G PREMIX 50 ML IV SCH (12:00)
[2021-04-11] MEDS: SODIUM CHLORIDE 0.9% INJ 3ML FLUSH IVF SCH ×2 (14:15→22:04)
[2021-04-11] MEDS ORDERED: PIPERACILLIN/TAZOBACTAM 2.25 G in DEXTROSE 5% WATER 50 ML IV SCH (18:00)
[2021-04-12 00:30] VITALS: BP 152/83
[2021-04-12 04:00] VITALS: BP 138/79
[2021-04-12 06:10] LABS: HEMATOCRIT. 23.6 % (42.0-52.0); HEMOGLOBIN. 7.7 g/dL (14.0-18.0); MEAN CORPUSCULAR HEMOGLOBIN 32.7 pg (28.0-32.0); MEAN CORPUSCULAR VOLUME 100.2 fL (80.0-94.0); MEAN PLATELET VOLUME 9.1 fl (7.4-10.4); PLATELET 75 x1000/uL (130-400); RED BLOOD CELL COUNT 2.36 mill/uL (4.7-6.1); RED CELL DISTRIBUTION WIDTH 21.4 % (11.6-14.6)
[2021-04-12] MEDS: SODIUM CHLORIDE 0.45% 1,000 ML IV SCH (06:37)
[2021-04-12] MEDS: PIPERACILLIN/TAZOBACTAM 2.25 G in DEXTROSE 5% WATER 50 ML IV SCH ×4 (06:38→17:08)
[2021-04-12] MEDS: SODIUM CHLORIDE 0.9% INJ 3ML FLUSH IVF SCH ×2 (06:40→13:02)
[2021-04-12 06:41] LABS: CHLORIDE 120 mEq/L (98-107)
[2021-04-12 07:26] LABS: PHOSPHORUS 3.5 mg/dL (2.5-4.9)
[2021-04-12 08:00] VITALS: BP 134/77
[2021-04-12] MEDS ORDERED: VANCOMYCIN 1500MG in DEXTROSE 5% WATER 250ML IV NR (10:30)
[2021-04-12] MEDS ORDERED: FINASTERIDE 5MG TABLET PO SCH (11:00)
[2021-04-12 13:55] LABS: PLATELET ESTIMATE DECREASED
[2021-04-12 16:00] VITALS: BP 129/77
[2021-04-12 17:50] VITALS: BP 129/77
== END 2021-04-12 22:42 | disposition short-term general hospital (02) | DRG 871 ==
LOC: ER 04:07 → 5WST 06:09 → ENRESERV 22:47
PROVIDERS: ADMIT Internal Medicine; ATTEND Internal Medicine
DX: A41.81 Sepsis due to Enterococcus (principal); J96.00 Acute respiratory failure, unspecified whether with hypoxia or hypercapnia; R65.21 Severe sepsis with septic shock; J18.9 Pneumonia, unspecified organism; D61.818 Other pancytopenia; E46 Unspecified protein-calorie malnutrition; E87.0 Hyperosmolality and hypernatremia; E87.2 Acidosis; N13.6 Pyonephrosis; N17.9 Acute kidney failure, unspecified; C79.51 Secondary malignant neoplasm of bone; I69.354 Hemiplegia and hemiparesis following cerebral infarction affecting left non-dominant side; Z20.822 Contact with and (suspected) exposure to COVID-19; N32.89 Other specified disorders of bladder; C61 Malignant neoplasm of prostate; I13.10 Hypertensive heart and chronic kidney disease without heart failure, with stage 1 through stage 4 chronic kidney disease, or unspecified chronic kidney disease; N18.9 Chronic kidney disease, unspecified; N40.0 Benign prostatic hyperplasia without lower urinary tract symptoms; Z85.46 Personal history of malignant neoplasm of prostate; Z87.01 Personal history of pneumonia (recurrent); Z87.442 Personal history of urinary calculi; Z93.6 Other artificial openings of urinary tract status; Z68.22 Body mass index [BMI] 22.0-22.9, adult
CPT/HCPCS: 36415; 36600; 71045; 74176; 80053; 80202; 81003; 82375; 82805; 83605; 83735; 84100; 84145; 84153; 84484; 85025; 87077; 87186; 93005; 93970; 99291; C9803; J1650; J2405; J2543; J3370; J7030; J7060; J7070; U0003; U0005; A4315; G0103

== ENCOUNTER 2024-03-17 17:17 | Emergency (ER) | payer MEDICARE, OTHER ==
[~2024-03-17] VITALS: Ht 182.9 cm; Wt 65.0 kg
[~2024-03-17 17:17] MED LIST changes: +CEFP200T14 MT
[2024-03-17 17:20] VITALS: O2SAT 98
[2024-03-17 17:42] LABS: BASOPHILS % 0.2 % (0.0-2.0); EOSINOPHILS % 0.9 % (0.0-5.0); HEMATOCRIT. 27.4 % (42.0-52.0); HEMOGLOBIN. 9.4 g/dL (14.0-18.0); LYMPHOCYTES % 22.2 % (20.0-50.0); MEAN CORPUSCULAR HEMOGLOBIN 33.2 pg (28.0-32.0); MEAN CORPUSCULAR HGB CONC 34.4 g/dL (31.0-37.0); MEAN CORPUSCULAR VOLUME 96.5 fL (80.0-94.0); MEAN PLATELET VOLUME 6.4 fl (7.4-10.4); MONOCYTES % 11.2 % (2.0-8.0); NEUTROPHILS % 65.5 % (40.0-76.0); PLATELET 232 x1000/uL (130-400); RED BLOOD CELL COUNT 2.83 mill/uL (4.7-6.1)
[2024-03-17 17:48] LABS: CARBON DIOXIDE 21 mEq/L (21-32); CHLORIDE 110 mEq/L (98-107); POTASSIUM 4.2 mEq/L (3.5-5.1); SODIUM 139 mEq/L (136-145)
[2024-03-17 17:49] LABS: CALCIUM 10.3 mg/dL (8.7-10.4)
[2024-03-17 17:53] LABS: INR 1.1
[2024-03-17 17:54] LABS: CREATININE 1.3 mg/dL (0.6-1.3); GLUCOSE 102 mg/dL (70-105); UREA NITROGEN BLOOD 18 mg/dL (9-23)
[2024-03-17] MEDS: SODIUM CHLORIDE 0.9% 1,000 ML IV ONE (18:20)
[2024-03-17] MEDS: ONDANSETRON HCL 4MG/2ML INJ IV STA (18:20)
[2024-03-17] MEDS: MORPHINE SULFATE 4 MG/ML INJ (FOR IV/IM USE) IV STA (18:20)
[2024-03-17 18:22] LABS: CLARITY URINE CLOUDY (CLEAR); COLOR URINE YELLOW (YELLOW); GLUCOSE URINE NEGATIVE (NEGATIVE); KETONES URINE NEGATIVE (NEGATIVE); LEUKOCYTE ESTERASE URINE 3+ (NEGATIVE); NITRITE URINE POSITIVE (NEGATIVE); OCCULT BLOOD URINE 1+ (NEGATIVE); PH URINE 6.5 (4.5-8.0); PROTEIN URINE 2+ (NEGATIVE); SPECIFIC GRAVITY URINE 1.013 (1.005-1.030); UROBILINOGEN URINE 0.2 E.U./dL (0.2-1.0)
[2024-03-17 18:41] LABS: BACTERIA URINE 2+; SQUAMOUS EPITHELIAL CELL URINE FEW /lpf (RARE/1+); WBC URINE 50-100 /hpf (0-2)
[2024-03-17] MEDS ORDERED: IOHEXOL-300 100 ML BOTTLE ONE (21:54)
[2024-03-17] MEDS: CEFTRIAXONE 1GM/50ML 50 ML IV NR (22:06)
[2024-03-17 22:48] VITALS: BP 130/72; PULSE 105; RESP 18; TEMP 98.4
== END 2024-03-17 23:10 ==
LOC: ER 17:17
DX: C79.51 Secondary malignant neoplasm of bone (principal); N39.0 Urinary tract infection, site not specified; I10 Essential (primary) hypertension; Z86.73 Personal history of transient ischemic attack (TIA), and cerebral infarction without residual deficits; Z87.891 Personal history of nicotine dependence
CPT/HCPCS: 99285; 72128; 96365; 96375; 96361; 80048; 81003; 82962; 85025; 85610; 87086; 36415; 72131; 74177; 93005; Q9967; J0696; J2405; J2270; J7030

== ENCOUNTER 2024-04-19 10:15 | Emergency (ER) | payer OTHER ==
[~2024-04-19] VITALS: Ht 188 cm; Wt 70.0 kg
[2024-04-19 10:17] VITALS: O2SAT 98
[2024-04-19 11:19] LABS: HEMATOCRIT. 27.7 % (42.0-52.0); HEMOGLOBIN. 8.8 g/dL (14.0-18.0); MEAN CORPUSCULAR HEMOGLOBIN 31.2 pg (28.0-32.0); MEAN CORPUSCULAR HGB CONC 31.9 g/dL (31.0-37.0); MEAN CORPUSCULAR VOLUME 97.9 fL (80.0-94.0); MEAN PLATELET VOLUME 8.6 fl (7.4-10.4); PLATELET 150 x1000/uL (130-400); RED BLOOD CELL COUNT 2.83 mill/uL (4.7-6.1); RED CELL DISTRIBUTION WIDTH 19.8 % (11.6-14.6)
[2024-04-19 11:24] LABS: DIFFERENTIAL COMMENT 1
[2024-04-19 11:56] LABS: CALCIUM 9.6 mg/dL (8.7-10.4); CHLORIDE 108 mEq/L (98-107); POTASSIUM 3.3 mEq/L (3.5-5.1); SODIUM 139 mEq/L (136-145)
[2024-04-19 11:57] LABS: CARBON DIOXIDE 21 mEq/L (21-32)
[2024-04-19 12:02] LABS: CREATININE 1.5 mg/dL (0.6-1.3); GLUCOSE 96 mg/dL (70-105); TROPONIN I HIGH SENSITIVITY 11 ng/L (3.0-53); UREA NITROGEN BLOOD 17 mg/dL (9-23)
[2024-04-19 12:12] LABS: ANISOCYTOSIS 1+; NUCLEATED RED BLOOD CELLS 3 /100 WBC; PLATELET ESTIMATE NORMAL
[2024-04-19] MEDS: SODIUM CHLORIDE 0.9% 500 ML IV ONE (12:20)
[2024-04-19] MEDS: PIPERACILLIN/TAZO 3.375G/50ML 50 ML IV ONE (12:26)
[2024-04-19] MEDS: VANCOMYCIN 1G PREMIX 200 ML IV ONE (12:46)
[2024-04-19] MEDS: MORPHINE SULFATE 4 MG/ML INJ (FOR IV/IM USE) IV ONE (12:57)
[2024-04-19] MEDS: KCL 20MEQ/100ML PREMIX 100 ML IV ONE (13:05)
[2024-04-19] MEDS: SODIUM CHLORIDE 0.9% 1,000 ML IV ONE (14:15)
[2024-04-19 17:35] LABS: CLARITY URINE TURBID (CLEAR); COLOR URINE YELLOW (YELLOW); GLUCOSE URINE NEGATIVE (NEGATIVE); KETONES URINE NEGATIVE (NEGATIVE); LEUKOCYTE ESTERASE URINE 3+ (NEGATIVE); NITRITE URINE POSITIVE (NEGATIVE); OCCULT BLOOD URINE 3+ (NEGATIVE); PH URINE 5.5 (4.5-8.0); PROTEIN URINE 2+ (NEGATIVE); SPECIFIC GRAVITY URINE 1.009 (1.005-1.030); UROBILINOGEN URINE 0.2 E.U./dL (0.2-1.0)
[2024-04-19 18:00] VITALS: TEMP 98.6
[2024-04-19 18:12] LABS: WBC URINE TNTC /hpf (0-2)
[2024-04-19 18:13] LABS: BACTERIA URINE 1+; SQUAMOUS EPITHELIAL CELL URINE 1+ /lpf (RARE/1+); URIC ACID CRYSTALS URINE 2+ /lpf
[2024-04-19 19:26] VITALS: BP 142/81; PULSE 106; RESP 16
== END 2024-04-19 20:57 | disposition short-term general hospital (02) ==
LOC: ER 10:15 → CANBEDREQ 04-20 20:55
DX: A41.9 Sepsis, unspecified organism (principal); I11.0 Hypertensive heart disease with heart failure; I50.9 Heart failure, unspecified; Z85.9 Personal history of malignant neoplasm, unspecified; Z86.73 Personal history of transient ischemic attack (TIA), and cerebral infarction without residual deficits; Z20.822 Contact with and (suspected) exposure to COVID-19
CPT/HCPCS: 99291; 96365; 96361; 96375; 87426; 80048; 81003; 83880; 83605; 85025; 87040; 87086; 87186; 84484; 87077; 36415; 84145; 71045; 93005; J2543; J3480; J3370; J2270

== ENCOUNTER 2024-05-23 12:36 | Emergency (ER) | payer OTHER ==
[~2024-05-23] VITALS: Ht 165.1 cm; Wt 74.0 kg
[2024-05-23 12:41] VITALS: TEMP 98.3; O2SAT 97
[2024-05-23] MEDS: MEROPENEM 1G/100ML 100 ML IV NR (13:00)
[2024-05-23] MEDS ORDERED: CEFTRIAXONE 1GM/50ML 50 ML IV NR (13:00)
[2024-05-23] MEDS: MORPHINE SULFATE 4 MG/ML INJ (FOR IV/IM USE) IV ONE (13:14)
[2024-05-23] MEDS: SODIUM CHLORIDE 0.9% 1000ML BAG (SEPSIS BOLUS) IV NR (13:16)
[2024-05-23 14:28] LABS: BASOPHILS % 0.5 % (0.0-2.0); EOSINOPHILS % 1.7 % (0.0-5.0); HEMATOCRIT. 30.5 % (42.0-52.0); HEMOGLOBIN. 10.1 g/dL (14.0-18.0); LYMPHOCYTES % 25.7 % (20.0-50.0); MEAN CORPUSCULAR HEMOGLOBIN 31.7 pg (28.0-32.0); MEAN CORPUSCULAR VOLUME 96.2 fL (80.0-94.0); MEAN PLATELET VOLUME 7.5 fl (7.4-10.4); MONOCYTES % 10.3 % (2.0-8.0); NEUTROPHILS % 61.8 % (40.0-76.0); PLATELET 158 x1000/uL (130-400); RED BLOOD CELL COUNT 3.17 mill/uL (4.7-6.1); RED CELL DISTRIBUTION WIDTH 19.7 % (11.6-14.6); WHITE BLOOD COUNT 9.3 x1000/uL (4.5-11.0)
[2024-05-23 14:40] LABS: CHLORIDE 107 mEq/L (98-107); SODIUM 140 mEq/L (136-145)
[2024-05-23 14:41] LABS: CALCIUM 10.8 mg/dL (8.7-10.4); CARBON DIOXIDE 24 mEq/L (21-32)
[2024-05-23 14:45] LABS: PROTHROMBIN TIME 11.5 sec (9.6-11.0)
[2024-05-23 14:46] LABS: CREATININE 0.9 mg/dL (0.6-1.3); GLUCOSE 100 mg/dL (70-105); UREA NITROGEN BLOOD 18 mg/dL (9-23)
[2024-05-23] MEDS: POTASSIUM CHLORIDE 20MEQ TABLET SR PO NR (15:50)
[2024-05-23 17:42] LABS: CLARITY URINE CLOUDY (CLEAR); COLOR URINE YELLOW (YELLOW); GLUCOSE URINE NEGATIVE (NEGATIVE); KETONES URINE TRACE (NEGATIVE); LEUKOCYTE ESTERASE URINE 2+ (NEGATIVE); NITRITE URINE POSITIVE (NEGATIVE); OCCULT BLOOD URINE 2+ (NEGATIVE); PH URINE 5.5 (4.5-8.0); PROTEIN URINE 2+ (NEGATIVE); SPECIFIC GRAVITY URINE 1.013 (1.005-1.030); UROBILINOGEN URINE 0.2 E.U./dL (0.2-1.0)
[2024-05-23 17:43] VITALS: BP 131/76; PULSE 88; RESP 11
[2024-05-23 18:14] LABS: BACTERIA URINE 1+; HYALINE CASTS URINE 0-5 /lpf; RBC URINE 15-25 /hpf (0-2); SQUAMOUS EPITHELIAL CELL URINE RARE /lpf (RARE/1+); WBC URINE 50-100 /hpf (0-2)
== END 2024-05-23 18:16 | disposition short-term general hospital (02) ==
LOC: ER 12:47 → CANBEDREQ 17:03 → ER 18:16
DX: T83.518A Infection and inflammatory reaction due to other urinary catheter, initial encounter (principal); I10 Essential (primary) hypertension; Z79.899 Other long term (current) drug therapy; Z98.890 Other specified postprocedural states; Z86.73 Personal history of transient ischemic attack (TIA), and cerebral infarction without residual deficits
CPT/HCPCS: 99285; 96365; 96366; 96375; 80048; 81003; 83605; 85025; 85610; 87040; 87086; 87077; 36415; 84145; 51702; J2185; J2270